=== PATIENT | female | born 1960 | race Caucasian/White ===

== ENCOUNTER → 2016-06-08 | Outpatient (CLI) | payer OTHER, MEDICAID | LOC: FIMAGING 11:43 | PROVIDERS: ATTEND Nurse Practitioner | DX: M41.84 Other forms of scoliosis, thoracic region (principal); M47.892 Other spondylosis, cervical region; M43.12 Spondylolisthesis, cervical region; M50.322 Other cervical disc degeneration at C5-C6 level ==

== ENCOUNTER → 2016-10-03 | Outpatient (CLI) | payer OTHER, MEDICAID | LOC: CIMAGING 09:07 | PROVIDERS: ATTEND Nurse Practitioner | DX: D18.03 Hemangioma of intra-abdominal structures (principal); K87 Disorders of gallbladder, biliary tract and pancreas in diseases classified elsewhere | CPT/HCPCS: 76705-PO ==

== ENCOUNTER → 2017-01-10 | Outpatient (CLI) | payer OTHER, MEDICAID | LOC: FIMAGING 12:11 | PROVIDERS: ATTEND Nurse Practitioner | DX: Z12.31 Encounter for screening mammogram for malignant neoplasm of breast (principal); Z80.3 Family history of malignant neoplasm of breast | CPT/HCPCS: G0202 ==

== ENCOUNTER → 2017-01-11 | Outpatient (CLI) | payer OTHER, MEDICAID | LOC: FIMAGING 10:08 | PROVIDERS: ATTEND Physician Assistant | DX: M50.321 Other cervical disc degeneration at C4-C5 level (principal); M50.221 Other cervical disc displacement at C4-C5 level ==